=== PATIENT | male | born 1985 | race Caucasian/White ===

== ENCOUNTER 2018-07-04 02:55 | Emergency (ER) ==
[2018-07-04 03:06] VITALS: BP 136/85; TEMP 98.3; BMI 50.5
--- NOTE | 2018-07-04 03:55 | DI ---
EXAM: Chest, single view 07/04/2018 HISTORY: Shortness of breath COMPARISON: None. FINDINGS / IMPRESSION: Cardiomediastinal countours appear within normal limits. There is no focal p ulmonary consolidation. No pleural effusion or pneumothorax. No acute cardiopulmonary process.
[2018-07-04] MEDS ORDERED: ATIVAN PO STA (04:13)
[2018-07-04] MEDS ORDERED: ATARAX PO STA (04:13)
--- NOTE | 2018-07-04 04:14 | ED.PDOC ---
General ED Provider: Dr. JD MOSES Chief Complaint: Shortness of Air Stated Complaint: Patient reports shortness of breath that started tonight. He feels like he is going to , Also states he has chest pain. Denies any Trauma. Admits to smoking weed and taking some oxycontin he got from a friend. Denies any use of methamphetamines. Time Seen by Physician: 03:30 Mode of Arrival: Walk-In Information Source: Patient Exam Limitations: No limitations Nursing and Triage Documentation Reviewed and Agree: Yes Does patient meet sepsis criteria?: No System Inflammatory Response Syndrome: Not Applicable Sepsis Protocol: For patient's 13 years and over: Temp is 96.8 and below OR 101 and greater Pulse >90 BPM Resp >20/minute Acutely Altered Mental Status Are patient's symptoms suggestive of a new infection, such as: -Pneumonia -Skin, Soft Tissue -Endocarditis -UTI -Bone, Joint Infection -Implantable Device -Acute Abdominal Infection -Wound Infection -Meningitis -Blood Stream Catheter Infection -Unknown Review of Systems - Review Of Systems Constitutional: Reports: No symptoms Eyes: Reports: No symptoms Ears, Nose, Mouth, Throat: Reports: No symptoms Respiratory: Reports: Short of air Cardiac: Reports: Chest pain GI: Reports: No symptoms : Reports: No symptoms Musculoskeletal: Reports: No symptoms Skin: Reports: No symptoms Neurological: Reports: Anxiety Endocrine: Reports: No symptoms Hematologic/Lymphatic: Reports: No symptoms All Other Systems: Reviewed and Negative Past Medical History - Past Medical History Endocrine: Reports: None Cardiovascular: Reports: None Respiratory: Reports: None Hematological: Reports: None Gastrointestinal: Reports: None Genitourinary: Reports: None Neuro/Psych: Reports: None Musculoskeletal: Reports: None Cancer: Reports: None Other Pertinent Past Medical History: Orchiatis - Surgical History General Surgical History: Reports: Tonsillectomy, Other (nasal polyp removed at 7 y/o) - Family History Family History: Reports: None - Social History Smoking Status: Current every day smoker, Light tobacco smoker Hx Substance Use: Yes (ALCOHOL, OCCASIONAL MARIJUANA) Alcohol Screening: Heavy Lives: With family - Immunizations Tetanus Shot up to Date: Yes Physical Exam - Physical Exam Appearance: Ill-appearing, Obese Ill-appearing: Severe Pain Distress: Mild Eyes: BONI, EOMI, Conjunctiva clear Neck: Supple Respiratory: Airway patent, Breath sounds clear, Breath sounds equal, Respirations nonlabored Cardiovascular: RRR, Pulses normal, No rub, No murmur GI/: Soft, Nontender, No masses, Bowel sounds normal, No Organomegaly Musculoskeletal: Normal strength, ROM intact, No edema, No calf tenderness Skin: Warm, Dry, Normal color Neurological: Alert, Oriented Psychiatric: Anxious Interpretation - Radiology Interpretation Radiology Interpretation By: Radiologist Radiology Results: Negative Exam Interpreted: Portable CXR - EKG Interpretation Time of EKG #1: 03:34 Rate: Normal Rhythm: Sinus Ectopy: None Sears: NL ST Segment: Normal Interpretation: normal ekg Re-Evaluation - Re-Evaluation Time of Re-Evaluation: 05:00 Status: Improved Critical Care Note - Critical Care Note Total Time (mins): 0 Course - Course Hematology/Chemistry: 07/04/18 03:30 07/04/18 03:30 Orders, Labs, Meds: Lab Review 07/04/18 07/04/18 07/04/18 03:30 03:30 03:30 WBC 11.72 H RBC 4.54 L Hgb 12.7 L Hct 38.5 L MCV 84.8 MCH 28.0 MCHC 33.0 RDW Coeff of Tess 14.3 Plt Count 222 Immature Gran % (Auto) 0.3 Neut % (Auto) 65.6 Lymph % (Auto) 23.5 Christian % (Auto) 6.1 Eos % (Auto) 4.0 Baso % (Auto) 0.5 Immature Gran # (Auto) 0.0 Neut # (Auto) 7.7 H Lymph # (Auto) 2.8 Christian # (Auto) 0.7 Eos # (Auto) 0.5 Baso # (Auto) 0.1 D-Dimer (Manual) 452.35 Puncture Site O2 Saturation ABG pH ABG pCO2 ABG pO2 ABG HCO3 ABG Total CO2 ABG Base Excess Gerhard Test FiO2 % Sodium 137.3 Potassium 4.11 Chloride 101.0 Carbon Dioxide 30.4 H Anion Gap 10.01 BUN 15.8 Creatinine 1.09 Estimated GFR (MDRD) 78.00 BUN/Creatinine Ratio 14.49 Glucose 108.8 H Calcium 9.44 Total Bilirubin 0.22 AST 28.9 ALT 20.1 Alkaline Phosphatase 81.4 Total Creatine Kinase 87.6 Troponin I < 0.012 Total Protein 7.41 Albumin 4.33 Globulin 3.08 Albumin/Globulin Ratio 1.40 Urine Opiates Screen Ur Oxycodone Screen Urine Methadone Screen Ur Propoxyphene Screen Ur Barbiturates Screen U Tricyclic Antidepress Ur Phencyclidine Scrn Ur Amphetamine Screen U Methamphetamines Scrn U Benzodiazepines Scrn Urine Cocaine Screen U Cannabinoids Screen 07/04/18 07/04/18 03:40 04:30 WBC RBC Hgb Hct MCV MCH MCHC RDW Coeff of Tess Plt Count Immature Gran % (Auto) Neut % (Auto) Lymph % (Auto) Christian % (Auto) Eos % (Auto) Baso % (Auto) Immature Gran # (Auto) Neut # (Auto) Lymph # (Auto) Christian # (Auto) Eos # (Auto) Baso # (Auto) D-Dimer (Manual) Puncture Site R rad O2 Saturation 99.0 ABG pH 7.499 H ABG pCO2 32.5 L ABG pO2 108.0 H ABG HCO3 25.2 ABG Total CO2 26 ABG Base Excess 2 Gerhard Test + FiO2 % 21.0 Sodium Potassium Chloride Carbon Dioxide Anion Gap BUN Creatinine Estimated GFR (MDRD) BUN/Creatinine Ratio Glucose Calcium Total Bilirubin AST ALT Alkaline Phosphatase Total Creatine Kinase Troponin I Total Protein Albumin Globulin Albumin/Globulin Ratio Urine Opiates Screen Negative Ur Oxycodone Screen Positive Urine Methadone Screen Negative Ur Propoxyphene Screen Negative Ur Barbiturates Screen Negative U Tricyclic Antidepress Negative Ur Phencyclidine Scrn Negative Ur Amphetamine Screen Negative U Methamphetamines Scrn Negative U Benzodiazepines Scrn Negative Urine Cocaine Screen Negative U Cannabinoids Screen Positive Orders Category Date Time Status ABG DRAW REQUEST Stat CARDIO 07/04/18 03:29 Completed EKG-(ED ONLY) Stat CARDIO 07/04/18 03:28 Completed ED WELL CLEANER APPLIED .ONCE EMERGENCY 07/04/18 03:28 Active ED IV/MEDIPORT/POWERPORT .ONCE EMERGENCY 07/04/18 03:28 Active ABG Stat LAB 07/04/18 03:40 Completed CBC W/ AUTO DIFF Stat LAB 07/04/18 03:30 Completed COMPREHENSIVE METABOLIC PANEL Stat LAB 07/04/18 03:30 Completed CREATINE KINASE Stat LAB 07/04/18 03:30 Completed D-DIMER Stat LAB 07/04/18 03:30 Completed DRUG SCREEN, URINE, RAPID Stat LAB 07/04/18 04:30 Completed TROPONIN I Stat LAB 07/04/18 03:30 Completed 0.9 % Sodium Chloride [Saline Flush] MEDS 07/04/18 03:28 Discontinued 1 syr IVF PRN PRN Hydroxyzine HCl [Atarax] MEDS 07/04/18 04:13 Discontinued 50 mg PO ONCE STA Lorazepam [Ativan] MEDS 07/04/18 04:13 Discontinued 1 mg PO ONCE STA CHEST, 1V AP ONLY Stat RADS 07/04/18 03:28 Completed Medications Discontinued Medications Generic Name Dose Route Start Last Admin Trade Name Freq PRN Reason Stop Dose Admin Hydroxyzine HCl 50 mg 07/04/18 04:13 07/04/18 04:19 Atarax PO 07/04/18 04:14 50 mg ONCE STA Administration Lorazepam 1 mg 07/04/18 04:13 07/04/18 04:19 Ativan PO 07/04/18 04:14 1 mg ONCE STA Administration Sodium Chloride 1 syr 07/04/18 03:28 Saline Flush IVF PRN PRN To flush IV Vital Signs: Temp Pulse Resp BP Pulse Ox 07/04/18 02:55 98.3 F 96 H 20 136/85 95 Departure - Departure Time of Disposition: 05:15 Disposition: HOME SELF-CARE Discharge Problem: Panic attack, Polysubstance (including opioids) dependence without physiological dependence Instructions: Polysubstance Abuse (ED), Panic Attack (ED) Condition: Good Pt referred to PMD for follow-up: Yes IPMP verified?: No Additional Instructions: Stop using Marijuana Stop taking street narcotics. Follow up with PCP in 1-2 days Take anxiety medications as needed. Prescriptions: Buspirone HCl 10 mg PO TID PRN #20 tablet PRN Reason: Anxiety Allergies/Adverse Reactions: Allergies No Known Allergies Allergy (Verified 07/04/18 03:06) Home Medications: Ambulatory Orders Buspirone HCl 10 mg PO TID PRN #20 tablet 07/04/18 Omeprazole 20 mg PO DAILY 07/04/18 Disposition Discussed With: Patient, Family
== END 2018-07-04 05:16 | disposition home or self-care (01) ==
LOC: ED 02:55
DX: F41.0 Panic disorder [episodic paroxysmal anxiety] (principal); F11.20 Opioid dependence, uncomplicated; F19.20 Other psychoactive substance dependence, uncomplicated; F12.90 Cannabis use, unspecified, uncomplicated; R06.02 Shortness of breath; R07.9 Chest pain, unspecified; F17.210 Nicotine dependence, cigarettes, uncomplicated
CPT/HCPCS: 36415; 80053; 80306; 82550; 82803; 84484; 85025; 85379; 93005; 93010; 99283

== ENCOUNTER 2019-01-20 18:05 | Emergency (ER) ==
[2019-01-20 18:10] VITALS: BP 142/95; TEMP 98.4; BMI 43.5
[2019-01-20] MEDS ORDERED: TORADOL IM STA (18:27)
--- NOTE | 2019-01-20 18:27 | ED.PDOC ---
General ED Provider: Dr. ECTOR ANDERSON MD Chief Complaint: Tooth Problem Stated Complaint: toothache Time Seen by Physician: 18:22 Mode of Arrival: Walk-In Information Source: Patient Exam Limitations: No limitations Nursing and Triage Documentation Reviewed and Agree: Yes Does patient meet sepsis criteria?: No If yes, has appropriate treatment been initiated?: Yes System Inflammatory Response Syndrome: Not Applicable Sepsis Protocol: For patient's 13 years and over: Temp is 96.8 and below OR 101 and greater Pulse >90 BPM Resp >20/minute Acutely Altered Mental Status Are patient's symptoms suggestive of a new infection, such as: -Pneumonia -Skin, Soft Tissue -Endocarditis -UTI -Bone, Joint Infection -Implantable Device -Acute Abdominal Infection -Wound Infection -Meningitis -Blood Stream Catheter Infection -Unknown Review of Systems - Review Of Systems Constitutional: Reports: No symptoms Eyes: Reports: No symptoms Ears, Nose, Mouth, Throat: Reports: No symptoms Respiratory: Reports: No symptoms Cardiac: Reports: No symptoms GI: Reports: No symptoms : Reports: No symptoms Musculoskeletal: Reports: No symptoms Skin: Reports: No symptoms Neurological: Reports: No symptoms Endocrine: Reports: No symptoms Hematologic/Lymphatic: Reports: No symptoms All Other Systems: Reviewed and Negative Past Medical History - Past Medical History Endocrine: Reports: None Cardiovascular: Reports: None Respiratory: Reports: None Hematological: Reports: None Gastrointestinal: Reports: None Genitourinary: Reports: None Neuro/Psych: Reports: None Musculoskeletal: Reports: None Cancer: Reports: None Other Pertinent Past Medical History: Orchiatis - Surgical History General Surgical History: Reports: Tonsillectomy, Other (nasal polyp removed at 7 y/o) - Family History Family History: Reports: None - Social History Smoking Status: Former smoker Hx Substance Use: Yes (ALCOHOL, OCCASIONAL MARIJUANA) Alcohol Screening: Occasionally Physical Exam - Physical Exam Appearance: Well-appearing, No pain distress, Well-nourished Eyes: BONI, EOMI, Conjunctiva clear ENT: Ears normal, Nose normal, Oropharynx normal (upper right tooth pain) Respiratory: Airway patent, Breath sounds clear, Breath sounds equal, Respirations nonlabored Cardiovascular: RRR, Pulses normal, No rub, No murmur GI/: Soft, Nontender, No masses, Bowel sounds normal, No Organomegaly Musculoskeletal: Normal strength, ROM intact, No edema, No calf tenderness Skin: Warm, Dry, Normal color Neurological: Sensation intact, Motor intact, Reflexes intact, Cranial nerves intact, Alert, Oriented Psychiatric: Affect appropriate, Mood appropriate Critical Care Note - Critical Care Note Total Time (mins): 0 Course - Course Vital Signs: Temp Pulse Resp BP Pulse Ox 01/20/19 18:05 98.4 F 77 20 142/95 H 98 Departure - Departure Time of Disposition: 18:45 Disposition: HOME SELF-CARE Discharge Problem: Toothache Condition: Good Pt referred to PMD for follow-up: Yes IPMP verified?: No Prescriptions: Sulfamethoxazole/Trimethoprim [Bactrim Ds 800/160 mg] 1 tab PO Q12HR 7 Days #14 tablet NS Allergies/Adverse Reactions: Allergies No Known Allergies Allergy (Verified 01/20/19 18:11) Home Medications: Ambulatory Orders Omeprazole 20 mg PO DAILY 07/04/18 Sulfamethoxazole/Trimethoprim [Bactrim Ds 800/160 mg] 1 tab PO Q12HR 7 Days #14 tablet NS 01/20/19 Transfer Form Completed: No Disposition Discussed With: Patient, Family
== END 2019-01-20 18:55 | disposition home or self-care (01) ==
LOC: ED 18:05
DX: K08.89 Other specified disorders of teeth and supporting structures (principal)
CPT/HCPCS: 96372; 99282